=== PATIENT | female | born 1950 | race Two or more races ===

== ENCOUNTER 2020-12-23 23:16 | Emergency (ER) | payer MEDICAID ==
[~2020-12-23] VITALS: Ht 165.1 cm; Wt 50.0 kg
[2020-12-23 23:32] VITALS: BP 130/70
--- NOTE | 2020-12-23 23:39 | NUR ---
pt jackelina from [place] for RLQ pain. Per EMS and pt, pain is chronic and has chronic bowel obstruction. pt denies n/v or other sx. per ems, pt also has possible dementia. pt a&ox4, resps even and unlabored, vss, nadn.
--- NOTE | 2020-12-23 23:50 | NUR ---
avi Lee at bedside for eval.
[2020-12-24 00:40] LABS: BASOPHILS % (AUTO) 1 % (0-1); EOSINOPHILS % (AUTO) 2 % (1-7); LYMPHOCYTES % (AUTO) 34 % (22-44); MEAN CORPUSCULAR HEMOGLOBIN 29.3 pg (27.0-34.8); MEAN CORPUSCULAR HGB CONC 33.5 g/dL (32.4-35.8); MEAN PLATELET VOLUME 6.9 fL (7.4-10.4); MONOCYTES % (AUTO) 16 % (2-9); NEUTROPHILS % (AUTO) 48 % (42-75); PLATELET COUNT 325 x10^3/uL (130-400); RED BLOOD COUNT 3.64 x10^6/uL (3.82-5.3); RED CELL DISTRIBUTION WIDTH 16.1 % (9.6-15.2)
[2020-12-24 00:48] LABS: ALBUMIN 2.5 g/dL (3.4-5.0); ANION GAP 5 mmol/L (5-15); CALCIUM 8.5 mg/dL (8.5-10.1); CHLORIDE 109 mmol/L (98-107)
[2020-12-24 00:51] LABS: ALANINE AMINOTRANSFERASE 18 U/L (12-78); ALKALINE PHOSPHATASE 73 U/L (45-117); BILIRUBIN,TOTAL 0.2 mg/dL (0.2-1.0); CREATININE 0.76 mg/dL (0.55-1.02); TOTAL PROTEIN 6.7 g/dL (6.4-8.2)
--- NOTE | 2020-12-24 01:32 | NUR ---
Pt educated on dc instructions, verbalized understanding. ambulatory to dc desk with steady gait.
[2020-12-26] MEDS ORDERED: ACET325T14 PO (02:28)
[2020-12-26] MEDS ORDERED: DOCU-131 PO (02:28)
[2020-12-26] MEDS ORDERED: BISA10SU71 PR (02:28)
[2020-12-26] MEDS ORDERED: RISP0.5T24 PO (02:28)
[2020-12-26] MEDS ORDERED: OXYC15TA3 PO ×2 (02:28)
[2020-12-26] MEDS ORDERED: OMEP-110 PO (02:28)
[2020-12-26] MEDS ORDERED: MIRT-37 PO (02:28)
[2020-12-26] MEDS ORDERED: ONDA4TAB13 SL (02:28)
[2020-12-26] MEDS ORDERED: PANT40TA6 PO (02:28)
[2020-12-26] MEDS ORDERED: HYDR-826 PO ×2 (02:28)
== END 2020-12-24 01:36 | disposition home or self-care (01) ==
LOC: ED 23:45
DX: G89.29 Other chronic pain (principal); R10.84 Generalized abdominal pain
CPT/HCPCS: 36415; 80053; 83690; 85025; 99283